=== PATIENT | male | born 1970 | race Caucasian/White ===

== ENCOUNTER 2022-07-26 11:49 | Emergency (ER) | payer MEDICAID ==
[~2022-07-26] VITALS: Ht 170 cm; Wt 94.3 kg
[~2022-07-26 11:49] MED LIST: LEVO500T69 PO; PRD20T PO
[2022-07-26] MEDS ORDERED: MECLIZINE 25 MG (ANTIVERT) TAB PO ONE (12:00)
[2022-07-26 12:09] LABS: BASOPHILS # (AUTO) 0.1 10^3/uL (0.0-0.1); BASOPHILS % (AUTO) 1 % (0-10); EOSINOPHILS # (AUTO) 0.1 10^3/uL (0.0-0.3); EOSINOPHILS % (AUTO) 1 % (0-10); HEMATOCRIT 40 % (40-54); LYMPHOCYTES # (AUTO) 1.4 10^3/uL (1.0-4.0); LYMPHOCYTES % (AUTO) 30 % (12-44); MEAN CORPUSCULAR HEMOGLOBIN 33 pg (25-34); MEAN CORPUSCULAR HGB CONC 35 g/dL (32-36); MEAN CORPUSCULAR VOLUME 93 fL (80-99); MEAN PLATELET VOLUME 9.4 fL (9.0-12.2); MONOCYTES # (AUTO) 0.3 10^3/uL (0.0-1.0); MONOCYTES % (AUTO) 7 % (0-12); NEUTROPHILS # (AUTO) 2.9 10^3/uL (1.8-7.8); NEUTROPHILS % (AUTO) 60 % (42-75); PLATELET COUNT 279 10^3/uL (130-400); WHITE BLOOD COUNT 4.8 10^3/uL (4.3-11.0)
--- NOTE | 2022-07-26 12:09 | ED General ---
General Chief Complaint: Dizziness/Syncope Stated Complaint: DIZZINESS Source of Information: Patient Exam Limitations: No Limitations History of Present Illness Date Seen by Provider: Jul 26, 2022 Time Seen by Provider: 12:05 Initial Comments To ER by EMS from [facility] where he presented for dizziness of 3 weeks duration. The dizziness is constant. It is not changed by position or movement. He does have frequent headaches and has had frequent headaches for "years". He gets intermittent tingling as if "it is asleep" in the left arm and left leg at random. He was at [facility] being evaluated for the symptoms, found to have ST segment elevation on EKG and was referred to the emergency room. He denies any chest pain or shortness of breath or nausea. No family history of early heart disease. He is a non-smoker. Drinks only rarely. Very physically active lifestyle. Timing/Duration: Getting Worse, Intermittent Severity: Moderate Associated Systoms: No Chest Pain, No Cough, No Diaphoresis, No Fever/Chills; Headaches; No Loss of Appetite, No Malaise, No Nausea/Vomiting, No Rash, No Seizure, No Shortness of Air, No Syncope, No Weakness Allergies and Home Medications Allergies Coded Allergies: aloe vera (Verified Allergy, 04/25/12) Patient Home Medication List Home Medication List Reviewed: Yes Levofloxacin (Levaquin 500 Mg) 500 Mg Tab, 1 EACH PO DAILY Prescribed by: CAITIE ANGELES on 11/22/132227 Prednisone (Prednisone) 20 Mg Tab, 40 MG PO DAILY Prescribed by: CAITIE ANGELES on 11/22/132227 Review of Systems Review of Systems Constitutional: see HPI, dizziness EENTM: see HPI Respiratory: see HPI; No dyspnea on exertion, No hemoptysis, No orthopnea, No phlegm, No short of breath Cardiovascular: see HPI, chest pain Genitourinary: no symptoms reported Musculoskeletal: no symptoms reported Skin: no symptoms reported Psychiatric/Neurological: No Symptoms Reported Hematologic/Lymphatic: No Symptoms Reported Immunological/Allergic: no symptoms reported Past Gfrjgpv-Almfdl-Okmrha Hx Patient Social History Tobacco Use?: No Substance use?: No Alcohol Use?: Yes Alcohol type: Beer Alcohol Frequency: Daily Pt feels they are or have been: No Past Medical History Adverse Reaction/Blood Tranf: No Physical Exam Vital Signs Vital Signs - First Documented 07/26/22 11:54 Temp 36.4 Pulse 62 Resp 18 B/P (MAP) 140/87 (104) Pulse Ox 99 Capillary Refill : Height, Weight, BMI Height: '" Weight: 197lbs. oz. 89.893967bn; BMI Method:Stated General Appearance: No Apparent Distress, WD/WN, Other (Only feels dizzy when he looks all the way to the left or all the way to the right.) Eyes: Bilateral Eye Normal Inspection, Bilateral Eye PERRL, Bilateral Eye EOMI HEENT: PERRL/EOMI, TMs Normal, Other (no nystagmus (either vertical or horizontal), no vertical skew. ) Neck: Full Range of Motion, Normal Inspection Respiratory: No Accessory Muscle Use, No Respiratory Distress Cardiovascular: Regular Rate, Rhythm, Normal Peripheral Pulses Gastrointestinal: Normal Bowel Sounds, Non Tender, Soft Extremity: Normal Capillary Refill, Normal Inspection Neurologic/Psychiatric: Alert, Oriented x3 Skin: Normal Color, Warm/Dry Progress/Results/Core Measures Suspected Sepsis SIRS Temperature: Pulse: Respiratory Rate: Laboratory Tests 07/26/22 12:00: White Blood Count 4.8 Blood Pressure / Mean: Laboratory Tests 07/26/22 12:00: Creatinine 0.87, INR Comment 0.9, Platelet Count 279, Total Bilirubin 0.3 Results/Orders Lab Results Laboratory Tests Test 07/26/22 12:00 Range/Units White Blood Count 4.8 4.3-11.0 10^3/uL Red Blood Count 4.31 4.30-5.52 10^6/uL Hemoglobin 14.0 13.3-17.7 g/dL Hematocrit 40 40-54 % Mean Corpuscular Volume 93 80-99 fL Mean Corpuscular Hemoglobin 33 25-34 pg Mean Corpuscular Hemoglobin Concent 35 32-36 g/dL Red Cell Distribution Width 13.2 10.0-14.5 % Platelet Count 279 130-400 10^3/uL Mean Platelet Volume 9.4 9.0-12.2 fL Immature Granulocyte % (Auto) 0 % Neutrophils (%) (Auto) 60 42-75 % Lymphocytes (%) (Auto) 30 12-44 % Monocytes (%) (Auto) 7 0-12 % Eosinophils (%) (Auto) 1 0-10 % Basophils (%) (Auto) 1 0-10 % Neutrophils # (Auto) 2.9 1.8-7.8 10^3/uL Lymphocytes # (Auto) 1.4 1.0-4.0 10^3/uL Monocytes # (Auto) 0.3 0.0-1.0 10^3/uL Eosinophils # (Auto) 0.1 0.0-0.3 10^3/uL Basophils # (Auto) 0.1 0.0-0.1 10^3/uL Immature Granulocyte # (Auto) 0.0 0.0-0.1 10^3/uL Prothrombin Time 13.0 12.2-14.7 SEC INR Comment 0.9 0.8-1.4 Activated Partial Thromboplast Time 32 24-35 SEC Sodium Level 137 135-145 MMOL/L Potassium Level 3.9 3.6-5.0 MMOL/L Chloride Level 103 98-107 MMOL/L Carbon Dioxide Level 17 L 21-32 MMOL/L Anion Gap 17 H 5-14 MMOL/L Blood Urea Nitrogen 11 7-18 MG/DL Creatinine 0.87 0.60-1.30 MG/DL Estimat Glomerular Filtration Rate 103 BUN/Creatinine Ratio 13 Glucose Level 142 H 70-105 MG/DL Calcium Level 8.8 8.5-10.1 MG/DL Corrected Calcium 8.8 8.5-10.1 MG/DL Magnesium Level 2.3 1.6-2.4 MG/DL Total Bilirubin 0.3 0.1-1.0 MG/DL Aspartate Amino Transf (AST/SGOT) 35 H 5-34 U/L Alanine Aminotransferase (ALT/SGPT) 48 0-55 U/L Alkaline Phosphatase 85 40-136 U/L Myoglobin 27.8 10.0-92.0 NG/ML Troponin I < 0.028 <0.028 NG/ML B-Type Natriuretic Peptide < 10.0 <100.0 PG/ML Total Protein 7.7 6.4-8.2 GM/DL Albumin 4.0 3.2-4.5 GM/DL My Orders Orders - CAITIE ANGELES APRN Cbc With Automated Diff (07/26/22 12:00) Magnesium (07/26/22 12:00) Chest 1 View, Ap/Pa Only (07/26/22 12:00) Ekg Tracing (07/26/22 12:00) Comprehensive Metabolic Panel (07/26/22 12:00) Myoglobin Serum (07/26/22 12:00) Protime With Inr (07/26/22 12:00) Partial Thromboplastin Time (07/26/22 12:00) O2 (07/26/22 12:00) Monitor-Rhythm Ecg Trace Only (07/26/22 12:00) Lipid Panel (07/27/22 06:00) Ed Iv/Invasive Line Start (07/26/22 12:00) Bnp [place] (07/26/22 12:00) Troponin I [place] (07/26/22 12:00) Ct Head/Cervical Spine Wo (07/26/22 12:00) Meclizine Tablet (Antivert Tablet) (07/26/22 12:00) Lactated Ringers (Lr 1000 Ml Iv Solution (07/26/22 12:15) Medications Given in ED Current Medications Medications Dose Ordered Sig/Cristiane Route Start Time Stop Time Status Last Admin Dose Admin Meclizine HCl 25 mg ONCE ONCE PO 07/26/22 12:00 07/26/22 12:03 DC 07/26/22 12:09 25 MG Vital Signs/I&O 07/26/22 11:54 Temp 36.4 Pulse 62 Resp 18 B/P (MAP) 140/87 (104) Pulse Ox 99 Capillary Refill : Departure Communication (Admissions) NAME: DIANE BARNETT [facility] REC#: [id number] PT STATUS: REG ER : 1970 PHYSICIAN: CAITIE ANGELES APRN ADMIT DATE: 07/26/22/ER Signed Date of Exam:07/26/22 CHEST 1 VIEW, AP/PA ONLY CHEST 1 VIEW, AP/PA ONLY Indication: Chest pain. Comparison: 11/22/2013 Findings: No focal airspace disease in the visualized lungs. Please note that the posterior lower lobes are poorly evaluated by portable radiography. No pleural effusion or pneumothorax. Normal cardiomediastinal silhouette. Impression: 1. No acute cardiopulmonary process by portable radiography. Dictated by: Dictated on workstation # [id number] Dict: 07/26/22 1242 Trans: 07/26/22 1242 [facility] [id number] Interpreted by: ZANE WARNER MD Electronically signed by: ZANE WARNER MD 07/26/22 1242 Family Conversation NAME: DIANE BARNETT [facility] REC#: [id number] PT STATUS: REG ER : 1970 PHYSICIAN: CAITIE ANGELES APRN ADMIT DATE: 07/26/22/ER Signed Date of Exam:07/26/22 CT HEAD/CERVICAL SPINE WO PROCEDURE: CT head and CT cervical spine without contrast. TECHNIQUE: Multiple contiguous axial images were obtained through the brain and cervical spine without the use of intravenous contrast. Sagittal and coronal reformations through the cervical spine were then performed. Auto Exposure Controls were utilized during the CT exam to meet ALARA standards for radiation dose reduction. INDICATION: Dizziness. Left arm and leg numbness. No known trauma. COMPARISON: None. FINDINGS: CT head: No large acute territorial ischemia, mass, or hemorrhage. No midline shift or mass effect. The ventricles, cortical sulci, and basilar cisterns are patent and unremarkable. The calvarium is intact. A small amount of retained secretions are seen in the antrum of the maxillary sinuses. Periapical lucency is seen involving the 1st and 2nd molars of the right maxilla. CT cervical spine: No acute fracture or dislocation is seen in the cervical spine. No focal osseous lesions. Vertebral body heights are well-maintained. The craniocervical junction is well-maintained. Mild degenerative changes are seen in the cervical spine with disc osteophyte complexes and uncovertebral arthropathy. Soft tissues of the neck are unremarkable. Included lungs are clear. IMPRESSION: 1. No hemorrhage or focal intra-axial mass. No CT evidence of large acute territorial ischemia. 2. No acute fracture or dislocation in the cervical spine. 3. 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 4. Small amount of retained secretions in the bilateral maxillary sinuses. Dictated by: Dictated on workstation # [id number] Dict: 07/26/22 1234 Trans: 07/26/22 1249 [id number] Interpreted by: JASON TREADWELL DO Electronically signed by: JASON TREADWELL DO 07/26/22 [id number] EKG here shows sinus rhythm normal in appearance no ectopy normal intervals , [address] elevation in V3 V4 V5 and lead II. No reciprocal ST segment depression. He is absent any cardiac symptoms(chest pain, fatigue, nausea, soa, escobar). Suspect early repolarization. Impression Primary Impression: Vertigo Disposition: 01 HOME, SELF-CARE Condition: Stable Departure-Patient Inst. Decision time for Depature: 12:58 Referrals: NO,LOCAL PHYSICIAN (PCP/Family) Primary Care Physician Patient Instructions: Vertigo ED Add. Discharge Instructions: 1. Establish care with and follow-up with a primary care provider to discuss further imaging of your neck such as MRI to evaluate the left arm and left leg tingling. Return to ER for any worsening. All discharge instructions reviewed with patient and/or family. Voiced understanding. Scripts Meclizine HCl (Meclizine HCl) 25 Mg Tablet 25 MG PO TID, #14 TAB Prov: CAITIE ANGELES APRN 07/26/22 Prednisone (Prednisone) 20 Mg Tab 2 TAB PO DAILY, #6 TAB Prov: CAITIE ANGELES APRN 07/26/22 CAITIE ANGELES APRN Jul 26, 2022 12:09
[2022-07-26] MEDS ORDERED: LACTATED RINGERS 1,000 ML IV SCH (12:15)
[2022-07-26 12:22] LABS: INR 0.9 (0.8-1.4); POTASSIUM 3.9 MMOL/L (3.6-5.0)
[2022-07-26 12:23] LABS: CALCIUM 8.8 MG/DL (8.5-10.1)
[2022-07-26 12:24] LABS: TOTAL PROTEIN 7.7 GM/DL (6.4-8.2)
[2022-07-26 12:27] LABS: BILIRUBIN,TOTAL 0.3 MG/DL (0.1-1.0)
[2022-07-26 12:28] LABS: CREATININE SERUM 0.87 MG/DL (0.60-1.30)
[2022-07-26 12:31] LABS: MAGNESIUM 2.3 MG/DL (1.6-2.4)
--- NOTE | 2022-07-26 12:44 | Diagnostic Imaging Report ---
CHEST 1 VIEW, AP/PA ONLY Indication: Chest pain. Comparison: 11/22/2013 Findings: No focal airspace disease in the visualized lungs. Please note that the posterior lower lobes are poorly evaluated by portable radiography. No pleural effusion or pneumothorax. Normal cardiomediastinal silhouette. Impression: 1. No acute cardiopulmonary process by portable radiography. Dictated by: Dictated on workstation # [id number]
--- NOTE | 2022-07-26 12:48 | Diagnostic Imaging Report ---
PROCEDURE: CT head and CT cervical spine without contrast. TECHNIQUE: Multiple contiguous axial images were obtained through the brain and cervical spine without the use of intravenous contrast. Sagittal and coronal reformations through the cervical spine were then performed. Auto Exposure Controls were utilized during the CT exam to meet ALARA standards for radiation dose reduction. INDICATION: Dizziness. Left arm and leg numbness. No known trauma. COMPARISON: None. FINDINGS: CT head: No large acute territorial ischemia, mass, or hemorrhage. No midline shift or mass effect. The ventricles, cortical sulci, and basilar cisterns are patent and unremarkable. The calvarium is intact. A small amount of retained secretions are seen in the antrum of the maxillary sinuses. Periapical lucency is seen involving the 1st and 2nd molars of the right maxilla. CT cervical spine: No acute fracture or dislocation is seen in the cervical spine. No focal osseous lesions. Vertebral body heights are well-maintained. The craniocervical junction is well-maintained. Mild degenerative changes are seen in the cervical spine with disc osteophyte complexes and uncovertebral arthropathy. Soft tissues of the neck are unremarkable. Included lungs are clear. IMPRESSION: 1. No hemorrhage or focal intra-axial mass. No CT evidence of large acute territorial ischemia. 2. No acute fracture or dislocation in the cervical spine. 3. 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 4. Small amount of retained secretions in the bilateral maxillary sinuses. Dictated by: Dictated on workstation # [id number]
[2022-07-26] MEDS ORDERED: MECL-149 PO (13:09)
[2022-07-26] MEDS ORDERED: PRD20T PO (13:09)
[2022-07-26 13:25] VITALS: BP 118/84
== END 2022-07-26 13:22 | disposition home or self-care (01) ==
LOC: EDUNIT# 11:49 → ER 11:51
DX: R42 Dizziness and giddiness (principal)
CPT/HCPCS: 36415; 70450; 71045; 72125; 80053; 83735; 83874; 83880; 84484; 85025; 85610; 85730; 93005; 93041